=== PATIENT | male | born 1970 | race Hispanic/Latino ===

== ENCOUNTER → 2021-01-03 | Outpatient (CLI) | payer OTHER, MEDICAID | END | disposition home or self-care (01) | LOC: RAH 08:14 | PROVIDERS: ATTEND Internal Medicine | DX: K80.20 Calculus of gallbladder without cholecystitis without obstruction (principal); K76.0 Fatty (change of) liver, not elsewhere classified | CPT/HCPCS: 76700 ==

== ENCOUNTER → 2021-10-19 | Outpatient (CLI) | payer OTHER, MEDICAID | END | disposition home or self-care (01) | LOC: RAH 12:13 | PROVIDERS: ATTEND Urology | DX: M47.816 Spondylosis without myelopathy or radiculopathy, lumbar region (principal); Z96.0 Presence of urogenital implants | CPT/HCPCS: 72100 ==

== ENCOUNTER 2022-08-06 11:33 | Observation (INO) | payer OTHER, MEDICARE ==
[~2022-08-06] VITALS: Ht 177.8 cm; Wt 108.9 kg
[2022-08-06 12:07] LABS: BASOPHILS % (AUTO) 0.6 % (0.0-5.0); EOSINOPHILS % (AUTO) 3.2 % (0.0-8.0); HEMATOCRIT 41.4 % (42-54); LYMPHOCYTES % (AUTO) 38.3 % (21.0-51.0); MEAN CORPUSCULAR HEMOGLOBIN 20.4 pg (27.0-33.0); MEAN CORPUSCULAR HGB CONC 28.7 g/dL (32.0-36.0); MEAN CORPUSCULAR VOLUME 71.1 fL (79-99); MONOCYTES % (AUTO) 8.3 % (3.0-13.0); NEUTROPHILS % (AUTO) 49.3 % (40.0-77.0); PLATELET COUNT (AUTO) 264 K/uL (130-400); RED BLOOD CELL COUNT(AUTO) 5.82 MIL/uL (4.50-6.20); RED CELL DISTRIBUTION WIDTH 18.4 % (11.0-15.5); WHITE BLOOD COUNT (AUTO) 6.3 K/uL (4.8-10.8)
[2022-08-06 12:21] LABS: ALBUMIN 3.5 g/dL (3.5-5.0); CREATININE 0.9 mg/dL (0.5-1.5); TOTAL PROTEIN, SERUM 7.2 g/dL (6.0-8.3)
[2022-08-06 14:23] LABS: APPEARANCE,URINE CLEAR (CLEAR); BILIRUBIN,URINE NEGATIVE (NEGATIVE); COLOR,URINE LIGHT-YELLOW (YELLOW); GLUCOSE, URINE (UA) >=1000 mg/dL (NEGATIVE); KETONES,URINE 10 mg/dL (NEGATIVE); LEUKOCYTE ESTERASE ,URINE NEGATIVE Leu/uL (NEGATIVE); NITRATE,URINE NEGATIVE (NEGATIVE); OCCULT BLOOD,URINE NEGATIVE (NEGATIVE); PROTEIN,URINE NEGATIVE (NEGATIVE); UROBILINOGEN,URINE 0.2 mg/dL (0.2-1.0)
[2022-08-06 14:30] LABS: RBC,URINE 0-1 /HPF (0-1); WBC,URINE 0-1 /HPF (0-1)
[2022-08-06] MEDS: FAMOTIDINE 20MG TAB PO SCH (21:43)
[2022-08-06] MEDS ORDERED: ONDANSETRON 4MG INJ IVP PRN (23:00)
[2022-08-06] MEDS ORDERED: ACETAMINOPHEN 325 MG TAB PO PRN (23:00)
[2022-08-06] MEDS ORDERED: MIDODRINE HCL 5 MG TABLET PO PRN (23:00)
[2022-08-06] MEDS ORDERED: ACETAMINOPHEN 650 MG SUPPOSITORY RC PRN (23:00)
[2022-08-06] MEDS: 0.9%NACL 1000ML 1,000 ML IV SCH (23:33)
[2022-08-06 23:35] LABS: AMPHET/METH SCREEN,URINE NEGATIVE (NEGATIVE); BARBITURATE SCREEN, URINE NEGATIVE (NEGATIVE); BENZODIAZEPINES SCREEN,URINE NEGATIVE (NEGATIVE); CANNABINOID SCREEN,URINE NEGATIVE (NEGATIVE); COCAINE SCREEN,URINE NEGATIVE (NEGATIVE); OPIATE SCREEN,URINE NEGATIVE (NEGATIVE); PHENCYCLIDINE SCREEN,URINE NEGATIVE (NEGATIVE)
[2022-08-07 06:56] LABS: % IRON SATURATION 5.7 % (30-44)
[2022-08-07 07:07] LABS: B-TYPE NATRIURETIC PEPTIDE < 5 pg/mL (0-100)
[2022-08-07 07:10] LABS: BASOPHILS % (AUTO) 0.6 % (0.0-5.0); EOSINOPHILS % (AUTO) 3.1 % (0.0-8.0); HEMATOCRIT 42.5 % (42-54); MEAN CORPUSCULAR HEMOGLOBIN 20.9 pg (27.0-33.0); MEAN CORPUSCULAR HGB CONC 29.2 g/dL (32.0-36.0); MEAN CORPUSCULAR VOLUME 71.8 fL (79-99); MONOCYTES % (AUTO) 6.4 % (3.0-13.0); NEUTROPHILS % (AUTO) 48.6 % (40.0-77.0); PLATELET COUNT (AUTO) 282 K/uL (130-400); RED BLOOD CELL COUNT(AUTO) 5.92 MIL/uL (4.50-6.20); RED CELL DISTRIBUTION WIDTH 18.6 % (11.0-15.5); WHITE BLOOD COUNT (AUTO) 8.8 K/uL (4.8-10.8)
[2022-08-07 07:12] LABS: ALBUMIN 3.5 g/dL (3.5-5.0); CREATININE 0.9 mg/dL (0.5-1.5); MAGNESIUM 1.8 mg/dL (1.80-2.40); PHOSPHORUS 3.4 mg/dL (2.5-4.9); POTASSIUM 3.4 mmol/L (3.5-5.1); THYROID STIMULATING HORMONE 2.06 uIU/mL (0.36-3.74); TOTAL PROTEIN, SERUM 7.3 g/dL (6.0-8.3)
[2022-08-07 07:27] LABS: HEMOGLOBIN A1C 9.8 % (4.0-6.0)
[2022-08-07] MEDS ORDERED: POTASSIUM CHLORIDE 10% ELIXIR 20 MEQ/15 ML UDCUP PO PRN (08:00)
[2022-08-07] MEDS ORDERED: MAGNESIUM 2GM PREMIX 50ML 50 ML IV PRN (08:00)
[2022-08-07] MEDS ORDERED: LIDOCAINE HCL-MPF 1% 2ML VIAL IV PRN ×2 (08:00)
[2022-08-07] MEDS ORDERED: GLUCAGON 1MG KIT 1 MG ML IM PRN (08:00)
[2022-08-07] MEDS ORDERED: POTASSIUM CHLORIDE 20MEQ/100ML 100 ML IV PRN ×2 (08:00)
[2022-08-07] MEDS ORDERED: DEXTROSE 50%-WATER 50 ML DISP.SYRIN IV PRN (08:00)
[2022-08-07] MEDS: FAMOTIDINE 20MG TAB PO SCH ×2 (08:44→21:32)
[2022-08-07] MEDS: ENOXAPARIN SODIUM 30 MG/0.3 ML SQ SCH (08:45)
[2022-08-07 10:00] VITALS: BP 111/68
[2022-08-07] MEDS: INSULIN HUMULIN R 100 UNIT/ML 3ML SQ SCH ×3 (11:30→21:42)
[2022-08-07 12:00] VITALS: BP 111/67
[2022-08-07 16:00] VITALS: BP 118/72
[2022-08-07] MEDS: KCL 20 MEQ ERTAB PO PRN ×2 (17:36→21:32)
[2022-08-07 19:00] VITALS: BP 125/61
[2022-08-07 19:03] VITALS: BP 123/68
[2022-08-07 19:06] VITALS: BP 105/66
[2022-08-07] MEDS ORDERED: LISI2.5T13 PO (20:21)
[2022-08-07] MEDS ORDERED: NITR0.4T50 SL (20:21)
[2022-08-07] MEDS ORDERED: ISOS30TA92 PO (20:21)
[2022-08-07] MEDS ORDERED: EMPA25TA PO (20:21)
[2022-08-07] MEDS ORDERED: FINA5TAB41 PO (20:21)
[2022-08-07] MEDS ORDERED: CYAN250014 PO (20:21)
[2022-08-07] MEDS ORDERED: SIMV80TA91 PO (20:21)
[2022-08-07] MEDS ORDERED: INSU100I15 SQ (20:21)
[2022-08-07] MEDS ORDERED: CALC-866 PO (20:21)
[2022-08-07] MEDS ORDERED: FAMO20TA8 PO (20:21)
[2022-08-07] MEDS ORDERED: METF-446 PO (20:21)
[2022-08-07] MEDS ORDERED: INSU300I3 SQ (20:21)
[2022-08-07] MEDS ORDERED: PRAS10TA9 PO (20:21)
[2022-08-07] MEDS ORDERED: LEVE500T19 PO (20:21)
[2022-08-07] MEDS ORDERED: HYDR12.54 PO (20:21)
[2022-08-07] MEDS ORDERED: PANT40TA54 PO (20:21)
[2022-08-07] MEDS ORDERED: LIRA0.6P SQ (20:21)
[2022-08-07] MEDS: 0.9%NACL 1000ML 1,000 ML IV SCH (21:32)
[2022-08-08] VITALS: BP 122/66
[2022-08-08 04:00] VITALS: BP 118/67
[2022-08-08 05:30] LABS: MEAN CORPUSCULAR HGB CONC 28.6 g/dL (32.0-36.0); MEAN CORPUSCULAR VOLUME 73.4 fL (79-99); RED BLOOD CELL COUNT(AUTO) 5.86 MIL/uL (4.50-6.20); RED CELL DISTRIBUTION WIDTH 18.4 % (11.0-15.5); WHITE BLOOD COUNT (AUTO) 8.2 K/uL (4.8-10.8)
[2022-08-08 05:39] LABS: CREATININE 0.9 mg/dL (0.5-1.5); MAGNESIUM 2.3 mg/dL (1.80-2.40); POTASSIUM 3.8 mmol/L (3.5-5.1)
[2022-08-08] MEDS: INSULIN HUMULIN R 100 UNIT/ML 3ML SQ SCH ×2 (06:01→12:21)
[2022-08-08 07:15] VITALS: BP 108/62
[2022-08-08] MEDS: ENOXAPARIN SODIUM 30 MG/0.3 ML SQ SCH (09:10)
[2022-08-08] MEDS: FAMOTIDINE 20MG TAB PO SCH (09:10)
[2022-08-08 11:15] VITALS: BP 120/70
== END 2022-08-08 13:30 | disposition home or self-care (01) ==
LOC: EDH 11:33 → EDHIP 16:59 → 4BH 08-07 08:55 → UNDODISOB 08-08 13:30
PROVIDERS: ADMIT Internal Medicine Critical Care Medicine; ATTEND Internal Medicine Critical Care Medicine
DX: R55 Syncope and collapse (principal); Z20.822 Contact with and (suspected) exposure to COVID-19; I95.9 Hypotension, unspecified; D50.9 Iron deficiency anemia, unspecified; E11.65 Type 2 diabetes mellitus with hyperglycemia; I10 Essential (primary) hypertension; I63.9 Cerebral infarction, unspecified; K21.9 Gastro-esophageal reflux disease without esophagitis; E78.5 Hyperlipidemia, unspecified; R33.9 Retention of urine, unspecified; D45 Polycythemia vera; E11.40 Type 2 diabetes mellitus with diabetic neuropathy, unspecified; H54.8 Legal blindness, as defined in USA; Z86.73 Personal history of transient ischemic attack (TIA), and cerebral infarction without residual deficits; Z79.899 Other long term (current) drug therapy; Z98.890 Other specified postprocedural states
CPT/HCPCS: 96361 ×2; 99285; 84484; 80053 ×2; 80305; 85025 ×2; 87804 ×2; 81001; 36415 ×3; 87635; 71045; 70450; 93880; 93005; 96372 ×2; 96365; 96366; 83036; 84443; 83540; 83550; 83735 ×2; 84100 ×2; 80061; 83880; 82728; 82140; 85045; 82948 ×5; 84425; 82607; 82746; 82533; 70551; 80048; 85027; 93306; 97161; G0378 ×42; J1815 ×2; J3475; J1650 ×2

== ENCOUNTER → 2024-05-06 | Outpatient (CLI) | payer OTHER, MEDICARE ==
[~2024-05-06] MED LIST: ASPI-1443 PO; ATOR-2 PO; CYAN250014 PO; EMPA10TA PO; FAMO20TA8 PO; FINA5TAB41 PO; INSU100I54 SQ; LEVE500T19 PO; METF-446 PO; METO25 PO; NITR0.4T50 SL; PANT40TA54 PO; PRAS10TA6 PO; SEMA1PEN3 SQ
[2024-05-06 16:11] LABS: BASOPHILS # (AUTO) 0.05 K/uL (0.00-0.20); BASOPHILS % (AUTO) 0.6 % (0.0-5.0); EOSINOPHILS % (AUTO) 2.3 % (0.0-8.0); HEMATOCRIT 53.7 % (42-54); IMMATURE GRANULOCYTE ABSOLUTE 0.03 K/uL (0-1); LYMPHOCYTES # (AUTO) 2.9 K/uL (1.0-4.8); LYMPHOCYTES % (AUTO) 32.8 % (21.0-51.0); MEAN CORPUSCULAR HEMOGLOBIN 25.8 pg (27.0-33.0); MEAN CORPUSCULAR HGB CONC 30.9 g/dL (32.0-36.0); MEAN CORPUSCULAR VOLUME 83.5 fL (79-99); MONOCYTES # (AUTO) 0.6 K/uL (0.1-1.0); MONOCYTES % (AUTO) 7.2 % (3.0-13.0); NEUTROPHILS % (AUTO) 56.8 % (40.0-77.0); PLATELET COUNT (AUTO) 267 K/uL (130-400); RED BLOOD CELL COUNT(AUTO) 6.43 MIL/uL (4.50-6.20); RED CELL DISTRIBUTION WIDTH 18.6 % (11.0-15.5); WHITE BLOOD COUNT (AUTO) 8.9 K/uL (4.8-10.8)
[2024-05-06 16:14] LABS: MAGNESIUM 2.1 mg/dL (1.80-2.40); POTASSIUM 4.4 mmol/L (3.5-5.1)
== END | disposition home or self-care (01) ==
LOC: LAB 12:41
PROVIDERS: ATTEND Internal Medicine Cardiovascular Disease
DX: I10 Essential (primary) hypertension (principal); I24.0 Acute coronary thrombosis not resulting in myocardial infarction
CPT/HCPCS: 36415; 80048; 83735; 85025

== ENCOUNTER → 2024-06-22 | Outpatient (CLI) | payer OTHER, MEDICARE | END | disposition home or self-care (01) | LOC: SHCH 08:21 | PROVIDERS: ATTEND Internal Medicine Cardiovascular Disease | DX: I08.0 Rheumatic disorders of both mitral and aortic valves (principal); I11.9 Hypertensive heart disease without heart failure; I25.5 Ischemic cardiomyopathy; E11.9 Type 2 diabetes mellitus without complications | CPT/HCPCS: 93306 ==

== ENCOUNTER → 2024-11-06 | Outpatient (CLI) | payer OTHER, MEDICARE ==
[2024-11-06] MEDS: REGADENOSON 0.4 MG/5 ML PF SYG IVP ONE (11:48)
--- NOTE | 2024-11-10 08:22 | HMCSR ---
APPROVED REPORT Height: 5 ft 8in Weight: 228 lbs TEST INDICATIONS CAD The imaging protocol used to acquire images was Rest Tc-99m/stress Tc-99m 1 day Consent: The procedure was explained and understood by the patient. Informerd consent was witnessed Bradley Reynolds RN First, low dose rest was performed then high dose stress. RESTING DATA: The resting ekg shows: NSR Rest SPECT myocardial perfusion imaging was performed in supine position 98 minutes following the int ravenous injection of 11.0 mCi of Tc-99 Sestamibi. Time of rest injection: Date: 11/06/2024 Time of rest imaging: Date: 11/06/2024 PHARMACOLOGIC STRESS: Pharmacologic stress test was performed by injecting regadenoson 0.4 mg IV push followed by the intra venous injection of 31.0 mCi of Tc-99 Sestamibi. Time of stress injection: Date: 11/06/2024 Time of stress imaging: Date: 11/06/2024 Heart Rate at time of stress injection: 74 bpm. Gated Stress SPECT was performed 90 minutes after stress injection. The images were gated to evaluate regional wall motion and calculate left ventricular ejection fracti on. STRESS DETAILS Reason for Termination: Infusion complete Stress Symptoms: Dyspnea Max HR Achieved: 99 bpm % of APMHR Achieved: 59 Max Blood Pressure: 150/81 mmHg Stress ECG: NSR Conclusion Inferior septal and apical infarct No ischemia LV ejection fraction of 42% Dilated left ventricle at rest and stress Inferior and apical hypokinesis No evidence of increased lung uptake
== END | disposition home or self-care (01) ==
LOC: SHCH 08:35
PROVIDERS: ATTEND Internal Medicine Cardiovascular Disease
DX: I25.10 Atherosclerotic heart disease of native coronary artery without angina pectoris (principal); R06.00 Dyspnea, unspecified
CPT/HCPCS: 78452; 93017; J2785; A9500 ×2

== ENCOUNTER → 2025-06-10 | Outpatient (CLI) | payer OTHER, MEDICAID ==
[~2025-06-10] MED LIST changes: +IOHEXOL-350 75 ML VIAL IV ONE; +PRAS10TA20 PO; -PRAS10TA6 PO
--- NOTE | 2025-06-11 11:55 | HMCIMG ---
EXAM: CT Temporal Bone Without IV contrast. CLINICAL HISTORY: OTALGIA, LEFT EAR TECHNIQUE: Axial computed tomography images of the orbits without intravenous contrast. CONTRAST: None. COMPARISON: None provided. FINDINGS: ORBITS: Unremarkable. No retrobulbar hematoma. No post-septal fat stranding or fluid BONES: No acute fracture or aggressively appearing osseous lesion. No periosteal reaction. SINUSES: Mild mucosal thickening in the bilateral maxillary sinus. The rest of the sinuses appear normal. Bilateral mastoid air cells appear normal. INTERNAL AUDITORY CANAL: The bilateral internal auditory canal appears normal. Bilateral ear ossicles appear normal. SOFT TISSUES: No soft tissue gas. No radiopaque foreign body. No evidence of otitis. IMPRESSION: Mild mucosal thickening in the bilateral maxillary sinus. Otherwise, unremarkable exam. /[place]
== END | disposition home or self-care (01) ==
LOC: RAH 07:24
PROVIDERS: ATTEND Internal Medicine
DX: J34.89 Other specified disorders of nose and nasal sinuses (principal); H92.02 Otalgia, left ear
CPT/HCPCS: 70482; Q9967